=== PATIENT | female | born 1960 | race Caucasian/White ===

== ENCOUNTER 2016-12-01 13:37 | Emergency (ER) | payer OTHER ==
[~2016-12-01] VITALS: Ht 152.4 cm; Wt 35.4 kg
[~2016-12-01 13:37] MED LIST: ANXIETY MED; ASPIRIN ADULT L81 M1 PO; NERVE MED; NEUROPATHY MED; PERCOCET 325 MG1 TA2 PO; SLEEPING MED; STOMACH MED; TYLENOL W/CODEI1 TA2 PO; VITAMIN D1000 IU PO
[2016-12-01] MEDS ORDERED: MIRTAZAPINE15 M2 PO (14:28)
[2016-12-01] MEDS ORDERED: ALENDRONATE SOD70 M1 PO (14:28)
[2016-12-01] MEDS ORDERED: LORAZEPAM0.5 MG PO (14:29)
[2016-12-01] MEDS ORDERED: ACETAMINOHPEN/C1 TAB PO (14:29)
[2016-12-01] MEDS ORDERED: GABAPENTIN TAB600 MG PO (14:30)
== END 2016-12-01 15:42 | disposition home or self-care (01) ==
LOC: ED 13:37
DX: S83.421A Sprain of lateral collateral ligament of right knee, initial encounter (principal); F17.200 Nicotine dependence, unspecified, uncomplicated; Z88.6 Allergy status to analgesic agent; Z79.899 Other long term (current) drug therapy; X50.1XXA Overexertion from prolonged static or awkward postures, initial encounter; Y93.89 Activity, other specified; Y92.9 Unspecified place or not applicable; Y99.9 Unspecified external cause status

== ENCOUNTER → 2016-12-25 | Outpatient (CLI) | payer OTHER ==
[~2016-12-25] MED LIST changes: +ACETAMINOHPEN/C1 TAB PO; +ALENDRONATE SOD70 M1 PO; +GABAPENTIN TAB600 MG PO; +LORAZEPAM0.5 MG PO; +MIRTAZAPINE15 M2 PO
== END | disposition home or self-care (01) ==
LOC: MRI 09:46
DX: S83.281A Other tear of lateral meniscus, current injury, right knee, initial encounter (principal); S82.001A Unspecified fracture of right patella, initial encounter for closed fracture; M81.0 Age-related osteoporosis without current pathological fracture; M25.461 Effusion, right knee; X58.XXXA Exposure to other specified factors, initial encounter; Y93.89 Activity, other specified; Y92.89 Other specified places as the place of occurrence of the external cause; Y99.8 Other external cause status

== ENCOUNTER 2017-10-24 17:52 | Inpatient (IN) | payer OTHER ==
[~2017-10-24] VITALS: Ht 152.4 cm; Wt 32.4 kg
--- NOTE | ~2017-10-24 | WRIGHTHP ---
[place], [place] PATIENT HISTORY AND PHYSICAL EXAM [id number] UNIT #: [id number] ROOM: 528 DOCTOR: MISA KWON MD BIRTHDATE: [birth year] DOS: 10/25/2017 SUBJECTIVE: The patient has been admitted to the hospital from the home as she fell down in her bedroom, as her slipper slipped and she sustained injury on her left hip and her left foot and she was brought to Emergency and on investigation in the Emergency Department was found to be having fracture of the left hip and needed to be admitted to the hospital. She denies any chest pain, any difficulty breathing, any nausea and vomiting. PAST MEDICAL HISTORY: She is also having osteoporosis, anxiety and chronic pain. She has past history of injury to the chest wall and right knee and the patient has history of fracture of the left arm for which she had surgery done with screw and plate. ALLERGIES: The patient is allergic to IBUPROFEN. MEDICATIONS: She is taking following medication: Fosamax 70 mg daily, lorazepam 0.5 mg at bedtime p.r.n., [place] 1 tablet at bedtime p.r.n., mirtazapine 15 mg at bedtime, gabapentin 600 mg 3 times daily. SOCIAL HISTORY: The patient drinks quite moderately daily and she does not use any street drugs. FAMILY HISTORY: Hypertension. PHYSICAL EXAMINATION: GENERAL: The patient is conscious and alert, sitting comfortably in the bed, but complaining of some pain in her left hip. VITAL SIGNS: She is 5 feet tall and weighing only 72 pounds. Her body mass index is 30.8. She is very thin and her blood pressure is 138/88, pulse 75, respirations 20, temperature 97.8. HEENT: Unremarkable. No glandular enlargement. NECK: Trachea is central. Neck veins are not distended. HEART: Regular. No murmur. LUNGS: Clear. No creps or rhonchi. ABDOMEN: Soft. Liver and spleen not palpable. No area of tenderness. No mass palpable. EXTREMITIES: The patient is having contusion of the left foot, second and third toe, but movements are normal. There is no tenderness. The patient is having marked tenderness in left hip area and movement of the left hip is causing her severe pain. LABORATORY DATA: Her x-ray done in Emergency shows fracture of the base of the greater trochanter of the left femur. Left knee x-ray is normal. Left foot x-ray is also normal. Protime is 10.9. CBC shows white count 8100, RBC 3.3, hemoglobin 12.3, MCV 108, MCH is 37.3, possibly due to drinking alcohol. Comprehensive metabolic profile shows glucose 103, sodium 133, calcium 8, albumin 2.6, SGOT 105, alkaline phosphatase 261. The patient is hypoalbumin and hyperprotein. Urine examination shows 1+ bacteria and 4+ urobilinogen. [place], [place] PATIENT HISTORY AND PHYSICAL EXAM NAME: FIDEL HOLDER UNIT #: [id number] ROOM: 528 DOCTOR: MISA KWON MD BIRTHDATE: [birth year] DIAGNOSES: Fracture of the left hip with osteoporosis, with history of alcohol abuse, malnutrition, hypoalbuminemia, hypoproteinemia. PLAN OF TREATMENT: The patient will be admitted to the hospital, orthopedic consult will be called and the patient will be started on her home medication and given pain medication and we will watch for any alcohol withdrawal. MISA KWON MD CM:HISPHYS:PATIENT HISTORY AND PHYSICAL EXAMINATION [id number] MISA KWON MD 10/28/17 1404 interface
--- NOTE | ~2017-10-24 | PR ---
[place], [place] PROGRESS NOTE NAME: FIDEL HOLDER UNIT #: [id number] ROOM: 528 DOCTOR: MISA KWON MD BIRTHDATE: [birth year] DOS: SUBJECTIVE: The patient has been admitted to hospital with fracture of her hip and has been seen by orthopedic surgeon and she is going for surgery today. The patient is having some pain in the left hip. She denies any chest pain. No difficulty in breathing. No nausea. No vomiting. Her chest x-ray done shows no acute problem. Basic metabolic profile today is essentially normal. CBC showed white count 5900, hemoglobin 11.3, hematocrit 34.2. OBJECTIVE: VITAL SIGNS: Her blood pressure is 153/68, at times go to 175/87, pulse rate is 74, respirations 18, temperature is 97. MISA KWON MD CM:PNTRANS [id number] MISA KWON MD 10/27/17 1058 interface
[2017-10-24 17:54] VITALS: BP 150/88
[2017-10-24 18:51] LABS: HEMATOCRIT 35.8 % (37.0-47.0); HEMOGLOBIN 12.3 g/dl (12.0-16.0); MEAN CELL VOLUME 108.5 fl (81.0-99.0); MEAN CORPUSCULAR HGB 37.3 pg (27.0-31.0); MEAN CORPUSCULAR HGB CONC 34.4 g/dl (33.0-37.0); MEAN PLATELET VOLUME 8.9 fl (9.6-12.3); PLATELET COUNT AUTOMATED 161 10*3/uL (130-400); WHITE BLOOD COUNT 8.1 10*3/uL (4.8-10.8)
[2017-10-24 18:59] LABS: ACT PARTIAL THROMBO TIME 22.2 SECONDS (20.8-31.5)
[2017-10-24 19:08] VITALS: BP 112/73
[2017-10-24 19:09] LABS: ALBUMIN 2.6 gm/dl (3.1-4.5); ALKALINE PHOSPHATASE 261 U/L (45-117); BUN 9 mg/dl (7-24); CHLORIDE 98 mmol/L (98-107); CREATININE 0.61 mg/dL (0.55-1.02); POTASSIUM 4.3 mmol/L (3.5-5.1); SGOT/AST 105 IU/L (3-35); SGPT/ALT 47 U/L (12-78); SODIUM 133 mmol/L (136-145); TOTAL PROTEIN 6.9 gm/dL (6.4-8.2)
[2017-10-24 19:17] LABS: TOTAL CELLS COUNTED 100 #CELLS
[2017-10-24 19:18] LABS: PLATELET SUFFICIENCY NORMAL (NORMAL)
[2017-10-24 19:20] VITALS: BP 112/73
[2017-10-24 19:50] VITALS: BP 152/87; BP 157/89
[2017-10-24 19:55] VITALS: BP 152/87
[2017-10-24] MEDS ORDERED: TYLENOL WITH C1 EACH PO (21:17)
[2017-10-25] VITALS: BP 138/88
[2017-10-25 04:31] LABS: BILIRUBIN 1+ (NEGATIVE); BLOOD NEGATIVE (NEGATIVE); CLARITY CLEAR (CLEAR); COLOR YELLOW (YELLOW); GLUCOSE NEGATIVE (NEGATIVE); KETONE TRACE (NEGATIVE); LEUKO ESTERASE NEGATIVE (NEGATIVE); NITRITE NEGATIVE (NEGATIVE); PH 5.5 (5.0-9.0); SPECIFIC GRAVITY 1.015 (1.005-1.030)
[2017-10-25 04:42] LABS: HYALINE CAST 15-20
[2017-10-25 08:00] VITALS: BP 172/72
[2017-10-25 12:00] VITALS: BP 162/87
[2017-10-25 16:00] VITALS: BP 160/82
[2017-10-25 20:00] VITALS: BP 141/67
[2017-10-26] VITALS (10 sets, daily range): BP systolic 143–178; BP diastolic 66–94
[2017-10-26 06:33] LABS: HEMATOCRIT 34.2 % (37.0-47.0); HEMOGLOBIN 11.3 g/dl (12.0-16.0); MEAN CORPUSCULAR HGB 36.7 pg (27.0-31.0); MEAN PLATELET VOLUME 8.6 fl (9.6-12.3); PLATELET COUNT AUTOMATED 168 10*3/uL (130-400); RED BLOOD COUNT 3.08 10*6/uL (4.10-5.10); RED CELL DISTRI WIDTH 14.1 % (0-14.5); WHITE BLOOD COUNT 5.9 10*3/uL (4.8-10.8)
[2017-10-26 07:00] LABS: BUN 7 mg/dl (7-24); CHLORIDE 105 mmol/L (98-107); CREATININE 0.32 mg/dL (0.55-1.02); POTASSIUM 3.9 mmol/L (3.5-5.1); SODIUM 138 mmol/L (136-145)
[2017-10-26 07:09] LABS: ATYPICAL LYMPHS 1 % (0-0); PLATELET SUFFICIENCY NORMAL (NORMAL); TOTAL CELLS COUNTED 100 #CELLS
[2017-10-27] VITALS: BP 133/81
[2017-10-27 06:39] LABS: HEMATOCRIT 30.5 % (37.0-47.0); HEMOGLOBIN 10.2 g/dl (12.0-16.0); MEAN CELL VOLUME 110.5 fl (81.0-99.0); MEAN CORPUSCULAR HGB CONC 33.4 g/dl (33.0-37.0); MEAN PLATELET VOLUME 8.9 fl (9.6-12.3); PLATELET COUNT AUTOMATED 180 10*3/uL (130-400); RED BLOOD COUNT 2.76 10*6/uL (4.10-5.10); RED CELL DISTRI WIDTH 14.2 % (0-14.5); WHITE BLOOD COUNT 6.7 10*3/uL (4.8-10.8)
[2017-10-27 07:07] LABS: TOTAL CELLS COUNTED 100 #CELLS
[2017-10-27 07:08] LABS: PLATELET SUFFICIENCY NORMAL (NORMAL)
[2017-10-27 08:00] VITALS: BP 117/65
[2017-10-27 12:00] VITALS: BP 134/64
[2017-10-27 16:00] VITALS: BP 138/74
[2017-10-27 20:00] VITALS: BP 141/75
[2017-10-28] VITALS: BP 146/85
[2017-10-28 06:15] LABS: HIV 1+2 AB + HIV1 P24 AG Non Reactive (Non Reactive)
[2017-10-28 06:40] LABS: HEMOGLOBIN 9.1 g/dl (12.0-16.0); MEAN CELL VOLUME 109.8 fl (81.0-99.0); MEAN CORPUSCULAR HGB CONC 33.7 g/dl (33.0-37.0); MEAN PLATELET VOLUME 8.9 fl (9.6-12.3); PLATELET COUNT AUTOMATED 204 10*3/uL (130-400); RED BLOOD COUNT 2.46 10*6/uL (4.10-5.10); RED CELL DISTRI WIDTH 13.7 % (0-14.5); WHITE BLOOD COUNT 6.1 10*3/uL (4.8-10.8)
[2017-10-28 07:04] LABS: CHLORIDE 103 mmol/L (98-107); POTASSIUM 3.9 mmol/L (3.5-5.1); SODIUM 135 mmol/L (136-145)
[2017-10-28 07:11] LABS: ALBUMIN 1.7 gm/dl (3.1-4.5); ALKALINE PHOSPHATASE 155 U/L (45-117); BUN 4 mg/dl (7-24); CREATININE 0.25 mg/dL (0.55-1.02); GAMMA GLUTAMYL TRANSPEPTIDASE 479 U/L (5-55); PHOSPHOROUS 3.2 mg/dL (2.5-4.9); PLATELET SUFFICIENCY NORMAL (NORMAL); SGOT/AST 56 IU/L (3-35); SGPT/ALT 26 U/L (12-78); TARGET CELLS FEW; TOTAL CELLS COUNTED 100 #CELLS
[2017-10-28 08:00] VITALS: BP 166/73
[2017-10-28 08:10] LABS: HEPATITIS B SURFACE AG Negative (Negative); HEPATITIS C VIRUS ANTIBODY <0.1 s/co (0.0-0.9)
[2017-10-28 12:00] VITALS: BP 160/92
[2017-10-28 16:00] VITALS: BP 137/79
[2017-10-28 20:00] VITALS: BP 114/84
[2017-10-29] VITALS: BP 137/84
[2017-10-29 06:39] LABS: BASO % 0.3 % (0.0-1.0); EOS # 0.1 10*3/uL (0.0-0.4); EOS % 1.8 % (1.0-4.0); HEMATOCRIT 27.7 % (37.0-47.0); HEMOGLOBIN 9.6 g/dl (12.0-16.0); LYMPH # 1.2 10*3/uL (1.3-4.4); LYMPH % 15.8 % (27.0-41.0); MEAN CELL VOLUME 107.8 fl (81.0-99.0); MEAN CORPUSCULAR HGB 37.4 pg (27.0-31.0); MEAN CORPUSCULAR HGB CONC 34.7 g/dl (33.0-37.0); MEAN PLATELET VOLUME 8.7 fl (9.6-12.3); MONO # 0.9 10*3/uL (0.1-1.0); MONO % 10.9 % (3.0-9.0); NEUT # 5.5 10*3/uL (2.3-7.9); NEUT % 70.7 % (47.0-73.0); PLATELET COUNT AUTOMATED 258 10*3/uL (130-400); RED BLOOD COUNT 2.57 10*6/uL (4.10-5.10); RED CELL DISTRI WIDTH 13.5 % (0-14.5); WHITE BLOOD COUNT 7.8 10*3/uL (4.8-10.8)
[2017-10-29 07:01] LABS: ALBUMIN 1.6 gm/dl (3.1-4.5); ALKALINE PHOSPHATASE 167 U/L (45-117); BUN 2 mg/dl (7-24); CHLORIDE 101 mmol/L (98-107); POTASSIUM 4.1 mmol/L (3.5-5.1); SGOT/AST 55 IU/L (3-35); SGPT/ALT 23 U/L (12-78); SODIUM 135 mmol/L (136-145); TOTAL PROTEIN 5.3 gm/dL (6.4-8.2)
[2017-10-29 08:00] VITALS: BP 158/74
[2017-10-29] MEDS ORDERED: NATURE'S BLEND100 M2 PO ×2 (12:22→13:20)
[2017-10-29] MEDS ORDERED: NATURE'S BLEND F1 MG PO (12:22)
[2017-10-29] MEDS ORDERED: VITAMIN D50000 UNIT PO (12:22)
[2017-10-29] MEDS ORDERED: ATIVAN0.5 MG PO (13:21)
== END 2017-10-29 15:55 | disposition other institution (70) | DRG 480 ==
LOC: ED 17:52 → EDHOLD 18:41 → 5E 19:24 → EDHOLD 19:24 → 5E 19:25
PROVIDERS: Internal Medicine; Nurse Practitioner Family; Orthopaedic Surgery
PROC: 0QS704Z Reposition Left Upper Femur with Internal Fixation Device, Open Approach (ICD-10-PCS; principal; 2017-10-26)
DX: S72.112A Displaced fracture of greater trochanter of left femur, initial encounter for closed fracture (principal); E43 Unspecified severe protein-calorie malnutrition; J90 Pleural effusion, not elsewhere classified; I95.9 Hypotension, unspecified; R82.2 Biliuria; E87.1 Hypo-osmolality and hyponatremia; E77.8 Other disorders of glycoprotein metabolism; F10.239 Alcohol dependence with withdrawal, unspecified; Z68.1 Body mass index [BMI] 19.9 or less, adult; K70.31 Alcoholic cirrhosis of liver with ascites; R74.0 Nonspecific elevation of levels of transaminase and lactic acid dehydrogenase [LDH]; E55.9 Vitamin D deficiency, unspecified; D53.9 Nutritional anemia, unspecified; D72.810 Lymphocytopenia; D75.89 Other specified diseases of blood and blood-forming organs; W01.0XXA Fall on same level from slipping, tripping and stumbling without subsequent striking against object, initial encounter; E53.8 Deficiency of other specified B group vitamins; G89.29 Other chronic pain; F41.9 Anxiety disorder, unspecified; Y93.89 Activity, other specified; Y99.8 Other external cause status; Z88.8 Allergy status to other drugs, medicaments and biological substances; Z79.899 Other long term (current) drug therapy; Z82.49 Family history of ischemic heart disease and other diseases of the circulatory system; Y92.092 Bedroom in other non-institutional residence as the place of occurrence of the external cause

== ENCOUNTER → 2017-11-12 | Outpatient (CLI) | payer OTHER ==
[~2017-11-12] MED LIST changes: +ATIVAN0.5 MG PO; +NATURE'S BLEND F1 MG PO; +NATURE'S BLEND100 M2 PO; +TYLENOL WITH C1 EACH PO; +VITAMIN D50000 UNIT PO
== END | disposition home or self-care (01) ==
LOC: ORTHO 00:34
DX: Z47.89 Encounter for other orthopedic aftercare (principal); S72.102D Unspecified trochanteric fracture of left femur, subsequent encounter for closed fracture with routine healing; X58.XXXD Exposure to other specified factors, subsequent encounter

== ENCOUNTER 2018-02-21 00:14 | Emergency (ER) | payer OTHER ==
[~2018-02-21] VITALS: Ht 152.4 cm; Wt 33.1 kg
--- NOTE | ~2018-02-21 | EKG ---
[place], [place] ELECTROCARDIOGRAM REPORT NAME: FIDEL HOLDER UNIT #: [id number] ROOM: DOCTOR: EPIPHANY DRAFT REPORT BIRTHDATE: [birth year] [facility] Test Date: 2018-02-21 Test Time: 00:46:23 Pat Name: FIDEL HOLDER Department: Room: Gender: F Assignment Manager: Alec Carter : 1960 Requested By: TERESITA MATA Order Number: [id number] Reading MD: Amara Walters MD Measurements Intervals [place] Rate: 71 P: 82 NV: 176 QRS: 18 QRSD: 100 T: 54 QT: 436 QTc: 474 Interpretive Statements Sinus rhythm Biatrial enlargement Left ventricular hypertrophy Probable anterior infarct, age indeterminate Baseline wander in lead(s) V5 Electronically Signed On 02-22-2018 14:00:26 PDT by Amara Walters MD CM:EKGRPT:ELECTROCARDIOGRAM REPORT [id number] TERESITA MATA EPIPHANY DRAFT REPORT TERESITA MATA
== END 2018-02-21 01:22 | disposition left against medical advice (07) ==
LOC: ED 00:14
DX: S61.411A Laceration without foreign body of right hand, initial encounter (principal); G89.29 Other chronic pain; M81.0 Age-related osteoporosis without current pathological fracture; I10 Essential (primary) hypertension; Z98.890 Other specified postprocedural states; Z79.899 Other long term (current) drug therapy; Z88.6 Allergy status to analgesic agent; W26.0XXA Contact with knife, initial encounter; Y93.89 Activity, other specified; Y92.89 Other specified places as the place of occurrence of the external cause; Y99.9 Unspecified external cause status

== ENCOUNTER 2018-03-03 12:15 | Emergency (ER) | payer OTHER ==
[~2018-03-03] VITALS: Ht 152.4 cm; Wt 32.7 kg
== END 2018-03-03 12:41 | disposition home or self-care (01) ==
LOC: ED 12:15
DX: S61.411D Laceration without foreign body of right hand, subsequent encounter (principal); G89.29 Other chronic pain; I10 Essential (primary) hypertension; F17.210 Nicotine dependence, cigarettes, uncomplicated; Z88.6 Allergy status to analgesic agent; Z79.899 Other long term (current) drug therapy; W26.0XXD Contact with knife, subsequent encounter

== ENCOUNTER 2021-09-09 11:50 | Inpatient (IN) | payer OTHER ==
[~2021-09-09] VITALS: Ht 152.4 cm; Wt 31.5 kg
[2021-09-09 12:22] VITALS: BP 193/93
[2021-09-09 12:44] LABS: BILIRUBIN Negative (Negative); BLOOD Negative (Negative); CLARITY Clear (Clear); COLOR Yellow (Yellow); GLUCOSE Negative (Negative); KETONE Negative (Negative); LEUKO ESTERASE Negative (Negative); NITRITE Negative (Negative); SPECIFIC GRAVITY 1.015 (1.001-1.030)
[2021-09-09 12:56] LABS: MUCOUS 1+; RBC 0-2 rbc/hpf (0-2); WBC 0-2 wbc/hpf (0-5)
[2021-09-09 13:12] LABS: BASO % 0.4 % (0.0-1.0); EOS % 0.1 % (1.0-4.0); HEMATOCRIT 37.1 % (37.0-47.0); LYMPH # 2.1 10*3/uL (1.3-4.4); LYMPH % 21.8 % (27.0-41.0); MEAN CELL VOLUME 77.9 fl (81.0-99.0); MEAN CORPUSCULAR HGB 25.8 pg (27.0-31.0); MEAN CORPUSCULAR HGB CONC 33.2 g/dl (33.0-37.0); MEAN PLATELET VOLUME 7.8 fl (9.6-12.3); MONO # 0.5 10*3/uL (0.1-1.0); MONO % 5.5 % (3.0-9.0); NEUT # 6.8 10*3/uL (2.3-7.9); NEUT % 71.9 % (47.0-73.0); PLATELET COUNT AUTOMATED 318 10*3/uL (130-400); RED BLOOD COUNT 4.76 10*6/uL (4.10-5.10); RED CELL DISTRI WIDTH 13.9 % (0-14.5); WHITE BLOOD COUNT 9.5 10*3/uL (4.8-10.8)
[2021-09-09 13:23] LABS: ACT PARTIAL THROMBO TIME 28.2 SECONDS (20.0-32.1); INTERNATIONAL NORM RATIO 1.1 (2.0-3.5)
[2021-09-09 13:29] LABS: ALKALINE PHOSPHATASE 102 U/L (45-117); BUN 8 mg/dl (7-24); CHLORIDE 82 mmol/L (98-107); CREATININE 0.53 mg/dL (0.55-1.02); LIPASE 86 U/L (73-393); POTASSIUM 4.1 mmol/L (3.5-5.1); SGOT/AST 12 IU/L (3-35); SGPT/ALT 12 U/L (12-78)
[2021-09-09 13:34] LABS: SODIUM 119 mmol/L (136-145)
[2021-09-09 16:17] VITALS: BP 169/91
[2021-09-09 19:35] VITALS: BP 163/79
[2021-09-09 22:35] VITALS: BP 149/69
[2021-09-09 23:15] VITALS: BP 160/72
[2021-09-10 00:39] LABS: BUN 8 mg/dl (7-24); CHLORIDE 88 mmol/L (98-107); POTASSIUM 3.7 mmol/L (3.5-5.1); SODIUM 122 mmol/L (136-145)
[2021-09-10 06:24] LABS: BUN 7 mg/dl (7-24); CHLORIDE 91 mmol/L (98-107); POTASSIUM 4.4 mmol/L (3.5-5.1); SODIUM 123 mmol/L (136-145)
[2021-09-10 06:35] LABS: BASO % 0.4 % (0.0-1.0); EOS # 0.1 10*3/uL (0.0-0.4); EOS % 0.9 % (1.0-4.0); HEMATOCRIT 34.1 % (37.0-47.0); LYMPH # 1.6 10*3/uL (1.3-4.4); LYMPH % 22.9 % (27.0-41.0); MEAN CELL VOLUME 77.1 fl (81.0-99.0); MEAN CORPUSCULAR HGB 25.8 pg (27.0-31.0); MEAN CORPUSCULAR HGB CONC 33.4 g/dl (33.0-37.0); MEAN PLATELET VOLUME 8.2 fl (9.6-12.3); MONO # 0.6 10*3/uL (0.1-1.0); MONO % 7.8 % (3.0-9.0); NEUT # 4.8 10*3/uL (2.3-7.9); NEUT % 67.7 % (47.0-73.0); PLATELET COUNT AUTOMATED 344 10*3/uL (130-400); RED BLOOD COUNT 4.42 10*6/uL (4.10-5.10); RED CELL DISTRI WIDTH 13.7 % (0-14.5)
[2021-09-10 06:39] LABS: ALKALINE PHOSPHATASE 90 U/L (45-117); CREATININE 0.49 mg/dL (0.55-1.02); SGOT/AST 9 IU/L (3-35); SGPT/ALT 15 U/L (12-78); TOTAL PROTEIN 6.1 gm/dL (6.4-8.2)
== END 2021-09-10 07:45 | disposition left against medical advice (07) | DRG 391 ==
LOC: ED 11:50 → EDHOLD 18:09 → 4E 22:55
PROVIDERS: Emergency Medicine; Internal Medicine Nephrology; Student in an Organized Health Care Education/Training Program; ADMIT Internal Medicine; ATTEND Internal Medicine
DX: K52.9 Noninfective gastroenteritis and colitis, unspecified (principal); E43 Unspecified severe protein-calorie malnutrition; E87.1 Hypo-osmolality and hyponatremia; R18.8 Other ascites; Z68.1 Body mass index [BMI] 19.9 or less, adult; K74.60 Unspecified cirrhosis of liver; E86.0 Dehydration; E55.9 Vitamin D deficiency, unspecified; F10.20 Alcohol dependence, uncomplicated; F41.9 Anxiety disorder, unspecified; M81.0 Age-related osteoporosis without current pathological fracture; Z88.6 Allergy status to analgesic agent; Z79.899 Other long term (current) drug therapy